=== PATIENT | male | born 1970 | race African-American/Black ===

== ENCOUNTER 2019-02-01 17:13 | Emergency (ER) | payer SELFPAY ==
[~2019-02-01] VITALS: Ht 180.3 cm; Wt 87.0 kg
[2019-02-01 17:19] VITALS: BP 155/88
== END 2019-02-01 19:10 | disposition home or self-care (01) ==
LOC: ER 17:13
DX: M79.10 Myalgia, unspecified site (principal); M79.661 Pain in right lower leg; V49.88XA Car occupant (driver) (passenger) injured in other specified transport accidents, initial encounter; Y93.89 Activity, other specified; Y92.89 Other specified places as the place of occurrence of the external cause; Y99.8 Other external cause status
CPT/HCPCS: 99283